=== PATIENT | female | born 1945 | race Caucasian/White ===

== ENCOUNTER 2016-11-18 14:01 | Emergency (ER) | payer MEDICARE, OTHER ==
[~2016-11-18] VITALS: Ht 144.8 cm; Wt 81.6 kg
[~2016-11-18 14:01] MED LIST: ASPI325T8 PO; BUSP10TA PO; FAMO20TA5 PO; FURO20TA3 PO; METO50TA2 PO; POTA20TA12 PO; PRAV40TA2 PO; SERT100T PO; TRAZ150T49 PO
[2016-11-18 14:46] LABS: BILIRUBIN,URINE NEGATIVE (NEG); GLUCOSE,URINE NEGATIVE (NEG); NITRITE,URINE NEGATIVE (NEG); PH,URINE 5.5; PROTEIN,URINE NEGATIVE (NEG-TRACE); UROBILINOGEN,URINE 0.2 mg/dL (0.2 mg/dL)
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
[2016-11-18 14:52] LABS: BACTERIA,URINE FEW /HPF (0-FEW); RBC,URINE 0 /HPF (0-2); SQUAMOUS EPITHELIAL CELL,UR MOD /LPF
[2016-11-18 15:00] VITALS: BP 156/67
[2016-11-18] MEDS ORDERED: NITR100C62 PO (15:04)
== END 2016-11-18 15:07 | disposition home or self-care (01) ==
LOC: ER 14:01
DX: N39.0 Urinary tract infection, site not specified (principal); E78.00 Pure hypercholesterolemia, unspecified; I10 Essential (primary) hypertension; J44.9 Chronic obstructive pulmonary disease, unspecified; K21.9 Gastro-esophageal reflux disease without esophagitis; Z90.49 Acquired absence of other specified parts of digestive tract; Z98.51 Tubal ligation status; Z98.890 Other specified postprocedural states; Z88.8 Allergy status to other drugs, medicaments and biological substances
CPT/HCPCS: 81001; 87086; 99284

== ENCOUNTER → 2017-04-09 | Outpatient (CLI) | payer OTHER ==
[2016-12-08 14:04] VITALS: BP 143/82
[~2017-04-09] MED LIST changes: +CIPR500T94 PO; +DOCU-109 PO; +METR500T8 PO; +NITR100C62 PO; +OXYC5TAB95 PO
--- NOTE | 2017-04-09 15:46 | RAD ---
DATE: 04/09/2017 EXAM: DIGITAL SCREEN BILAT W/CAD HISTORY: Routine screening COMPARISON: 02/08/2015 This study was interpreted with the benefit of Computerized Aided Detection (CAD). The breast parenchyma is primarily fatty replaced. Breast parenchyma level density A. FINDINGS: No new or enlarging breast densities are seen. There are benign type calcifications in both breasts. No suspicious microcalcifications are evident. IMPRESSION: There is no mammographic evidence of malignancy in either breast. BI-RADS CATEGORY: 2 BENIGN FINDING(S) RECOMMENDED FOLLOW-UP: 12M 12 MONTH FOLLOW-UP PQRS compliance statement: Patient information was entered into a reminder system with a target due date for the next mammogram. Mammography is a sensitive method for finding small breast cancers, but it does not detect them all and is not a substitute for careful clinical examination. A negative mammogram does not negate a clinically suspicious finding and should not result in delay in biopsying a clinically suspicious abnormality. "Our facility is accredited by the [employer]."
== END | disposition home or self-care (01) ==
LOC: MAMMO 14:45
PROVIDERS: ATTEND Family Medicine
DX: Z12.31 Encounter for screening mammogram for malignant neoplasm of breast (principal); Z87.891 Personal history of nicotine dependence
CPT/HCPCS: G0202; 77067

== ENCOUNTER → 2018-04-11 | Outpatient (CLI) | payer OTHER ==
[2016-12-08 14:04] VITALS: BP 143/82
[~2018-04-11] MED LIST changes: -METO50TA2 PO; +METO50TA6 PO
--- NOTE | 2018-04-11 12:25 | RAD ---
DATE: 04/11/2018 EXAM: MAMMO GRAY SCREENING BILATERAL HISTORY: Routine screening COMPARISON: 2016 and 2014. This study was interpreted with the benefit of Computerized Aided Detection (CAD). FINDINGS: Breast Density: SCATTERED The breast parenchyma shows scattered fibroglandular densities. Breast parenchyma level B. The skin and nipples are within normal limits. Benign-appearing bilateral calcifications. No suspicious ossifications, spiculated mass or area of architectural distortion. IMPRESSION: No mammographic evidence of malignancy. Stable mammogram. BI-RADS CATEGORY: 2 BENIGN FINDING(S) RECOMMENDED FOLLOW-UP: 12M 12 MONTH FOLLOW-UP PQRS compliance statement: Patient information was entered into a reminder system with a target due date for the next mammogram. Mammography is a sensitive method for finding small breast cancers, but it does not detect them all and is not a substitute for careful clinical examination. A negative mammogram does not negate a clinically suspicious finding and should not result in delay in biopsying a clinically suspicious abnormality. "Our facility is accredited by the [employer]ammography [employer]."
== END | disposition home or self-care (01) ==
LOC: MAMMO 09:23
PROVIDERS: ATTEND Family Medicine
DX: Z12.31 Encounter for screening mammogram for malignant neoplasm of breast (principal)
CPT/HCPCS: 77063; 77067

== ENCOUNTER → 2018-07-20 | Outpatient (CLI) | payer OTHER ==
[2016-12-08 14:04] VITALS: BP 143/82
[~2018-07-20] MED LIST changes: +METR-34 PO; -METR500T8 PO; +OXYC5TAB4 PO; -OXYC5TAB95 PO
--- NOTE | 2018-07-20 11:53 | KCIC ---
Indication:Acute right shoulder pain for one week. No known injury. TECHNIQUE: 3 views of the right shoulder COMPARISON:None FINDINGS: No acute fracture or dislocation. Moderate acromioclavicular and mild glenohumeral joint osteoarthritis. Visualized right lung is clear. IMPRESSION: As above. Electronically signed by: Valeriy Ordonez DO (07/20/2018 11:48 AM) [id number]
== END | disposition home or self-care (01) ==
LOC: KCIC 11:26
PROVIDERS: ATTEND Nurse Practitioner Family
DX: M19.011 Primary osteoarthritis, right shoulder (principal); J44.9 Chronic obstructive pulmonary disease, unspecified; Z87.891 Personal history of nicotine dependence; Z88.8 Allergy status to other drugs, medicaments and biological substances
CPT/HCPCS: 73030

== ENCOUNTER 2018-08-28 14:52 | Inpatient (IN) | payer OTHER ==
[~2018-08-28] VITALS: Ht 146.1 cm; Wt 83.0 kg
[2018-08-28] MEDS ORDERED: IV NORMAL SALINE 1000ML BAG 1,000 ML IV SCH (15:13)
[2018-08-28] MEDS ORDERED: ASPIRIN CHEWABLE 81 MG TABLET. PO ONE (15:15)
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
[2018-08-28 15:28] LABS: BASO % 1 % (0-3); EOS # 0.2 x10^3/uL (0.0-0.7); EOS % 3 % (0-3); HEMATOCRIT 36.6 % (36.0-47.0); LYMPH # 1.7 x10^3/uL (1.0-4.8); LYMPH % 28 % (24-48); MEAN CORPUSCULAR HEMOGLOBIN 31 pg (25-35); MEAN CORPUSCULAR HGB CONC 33 g/dL (31-37); MEAN CORPUSCULAR VOLUME 95 fL (79-100); MONO # 0.4 x10^3/uL (0.0-1.1); MONO % 7 % (0-9); NEUT # 3.9 x10^3uL (1.8-7.7); NEUT % 63 % (31-73); PLATELET COUNT 197 x10^3/uL (140-400); RED BLOOD COUNT 3.86 x10^6/uL (3.50-5.40); WHITE BLOOD COUNT 6.3 x10^3/uL (4.0-11.0)
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
[2018-08-28 15:38] LABS: PROTHROMBIN TIME PATIENT 13.2 SEC (11.7-14.0)
[2018-08-28 15:41] LABS: CALCIUM 8.7 mg/dL (8.5-10.1); GFR 54.1; POTASSIUM 4.9 mmol/L (3.5-5.1)
[2018-08-28 15:55] LABS: ALBUMIN 3.4 g/dL (3.4-5.0); ALBUMIN/GLOBULIN RATIO 0.9 (1.0-1.7); TOTAL BILIRUBIN 0.4 mg/dL (0.2-1.0); TOTAL PROTEIN 7.1 g/dL (6.4-8.2)
[2018-08-28] MEDS ORDERED: ONDANSETRON PF 4 MG/2 ML VIAL. IV PRN (16:15)
[2018-08-28] MEDS ORDERED: oxyCODONE IR 5 MG TABLET PO PRN (16:15)
[2018-08-28] MEDS ORDERED: diphenhydrAMINE HCL 25 MG CAPSULE PO PRN (16:15)
[2018-08-28] MEDS ORDERED: DOCUSATE SODIUM 100 MG CAPSULE. PO PRN (16:15)
[2018-08-28] MEDS ORDERED: ACETAMINOPHEN 500 MG TABLET PO PRN (16:15)
[2018-08-28] MEDS: FAMOTIDINE 20 MG TABLET. PO SCH (17:25)
[2018-08-28 17:37] VITALS: BP_SYST 167; BP_SYST 215; BP_DIAS 82; BP_DIAS 95
--- NOTE | 2018-08-28 18:21 | NUR ---
PATIENT BROUGHT TO ROOM 200 PER WHEELCHAIR BY ED PERSONNEL. PATIENT ORIENTED TO ROOM, CALL LIGHT, AND FALL POLICY. PATIENT HAS NO COMPLAINTS AT THIS TIME. PATIENT ASSESSED AND STABLE AT THIS TIME WITH NO COMPLAINTS OF CHEST PAIN OR PRESSURE. PATIENT ESCORTED TO BATHROOM. PATIENTS GAIT STEADY AT THIS TIME WITH NO CONCERNS. WILL CONTINUE TO MONITOR PATIENT.
[2018-08-28] MEDS: SERTRALINE 50 MG TABLET. PO SCH (18:29)
[2018-08-28 19:00] VITALS: BP 177/52
[2018-08-28] MEDS: busPIRone 10 MG TABLET. PO SCH (21:29)
[2018-08-28] MEDS: traZODone 50 MG TABLET. PO SCH (21:30)
[2018-08-28] MEDS: ATORVASTATIN CALCIUM 10 MG TABLET. PO SCH (21:30)
[2018-08-28] MEDS: METOPROLOL TART IMMED RELEASE 50 MG TABLET. PO SCH (21:30)
[2018-08-28 23:48] VITALS: BP 143/104
[2018-08-29] VITALS (13 sets, daily range): BP systolic 90–151; BP diastolic 39–71
--- NOTE | 2018-08-29 07:05 | EKG ---
[facility] [address] [place] [address] Test Date: 2018-08-28 Test Time: 15:04:15 Pat Name: OMAYRA ESTRADA Department: Room: 200 1 Gender: F Folder Operator: : 1945 Requested By: NOEMY FARMER Order Number: [id number] Reading MD: Sylvester Hamilton MD Measurements Intervals Wisdom Rate: 52 P: [place]: QRS: 62 QRSD: 86 T: 164 QT: 442 QTc: 413 Interpretive Statements SINUS BRADYCARDIA Electronically Signed On 09-01-2018 15:52:28 CDT by Sylvester Hamilton MD
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
[2018-08-29] MEDS: IV NORMAL SALINE 1000ML BAG 1,000 ML IV SCH ×2 (09:55→23:20)
[2018-08-29] MEDS: ASPIRIN 325 MG TABLET PO SCH (09:59)
[2018-08-29] MEDS: METOPROLOL TART IMMED RELEASE 50 MG TABLET. PO SCH ×2 (10:05→21:00)
[2018-08-29] MEDS ORDERED: LIDOCAINE 1% Multi-Dose 20 ML VIAL. ONE (10:14)
[2018-08-29] MEDS ORDERED: IOHEXOL 300 MG/ML 100ML VIAL. ONE ×2 (10:14→11:03)
[2018-08-29] MEDS ORDERED: MIDAZOLAM HCL/PF 2 MG/2 ML VIAL. ONE (10:32)
[2018-08-29] MEDS ORDERED: fentaNYL PF VIAL 100 MCG/2 ML VIAL ONE (10:32)
--- NOTE | 2018-08-29 10:38 | PDOC ---
MODERATE SEDATION ASSESSMENT RISKS/ALTERNATIVES Risks/Alternatives Risks and alternatives of this type of sedation and procedure discussed with: RISK/ALTERNATIVES: Patient H & P ON CHART H & P H & P on chart and reviewed for co-morbid conditions and appropriate labs. H&P ON CHART: Yes STATUS PREG STATUS ASSESSED: N/A MEDS/ALLERGIES REVIEWED Meds/Allergies Reviewed Medications and Allergies including time and route of recently administered narcotics and sedatives. MEDS/ALLERGIES REVIEWED: Yes ASA RATING ASA RATING: II AIRWAY ASSESSMENT Airway Assessment Airway patency, oral function limitations, presence of caps, crowns, dentures, partials, and ability to extend neck assessed. AIRWAY ASSESSMENT: Yes MALLAMPATI SCORE MALLAMPATI SCORE: II PRE-SEDATION ASSESSMENT PRE-SEDATION ASSESSMENT: Yes MIL CARRILLO MD Aug 29, 2018 10:38
[2018-08-29] MEDS ORDERED: NITROGLYCERIN OINT 1 GM PACKET. ONE (10:44)
[2018-08-29] MEDS ORDERED: CONTRAST GIVEN. MC PRN (11:00)
[2018-08-29] MEDS ORDERED: IOHEXOL 300 MG/ML 100ML VIAL. IART ONE (11:00)
[2018-08-29] MEDS ORDERED: MIDAZOLAM HCL/PF 2 MG/2 ML VIAL. IV ONE (11:00)
[2018-08-29] MEDS ORDERED: fentaNYL PF VIAL 100 MCG/2 ML VIAL IV ONE (11:00)
[2018-08-29] MEDS ORDERED: LIDOCAINE 1% Multi-Dose 20 ML VIAL. INJ ONE (11:00)
--- NOTE | 2018-08-29 11:17 | NUR ---
SS following for discharge planning. SS reviewed pt chart and met with pt's RN. Pt is from home and currently requiring oxygen. PT/OT ordered. Pt receiving heart cath today. SS will continue to follow for pending discharge needs.
[2018-08-29 11:24] LABS: CHOLESTEROL/HDL RATIO 2.2
--- NOTE | 2018-08-29 12:20 | CARD ---
MR#: [id number] Date of Study: 08/29/2018 Ordering Physician: LIZZETTE CISSE, Referring Physician: SAMREEN RICHARDSON Tech: Cm Torrez, RT (R) APPROVED REPORT Procedures. Left heart catheterization Left ventriculogram. Selective coronary angiogram Aortic root injection. The patient is a 73-year-old female with recurrent episodes of chest discomfort. Her neck enzymes wer e normal but the patient continued to have chest discomfort with multiple risk factors. Cardiac cath eterization was recommended for definitive diagnosis of possible coronary disease. Risks and benefits were discussed with the patient. She agreed to proceed. After informed consent was obtained the patient was brought to the heart catheterization lab. The are a of the right femoral artery was prepared the usual manner with Betadine, sterile draping and local anesthetic. An 18-gauge needle was used to enter the right femoral artery, a wire placed and a 6 Fren ch sheath placed over the wire. A J-wire was used for all exchanges. A 6 Haitian JL4 diagnostic cathet er was used for injections of the left system. A 6 Haitian Michael right diagnostic catheter was use d for injections of the right system. A pigtail catheter was advanced to the left ventricle. A 30 R AO left ventriculogram was performed. Pullback pressures were measured. A 30 [place] CIT[place] aortic root injecti on was performed. The catheter was removed from the patient. Injection the sheath showed normal place ment. The sheath was removed and sealed with an Angio-Seal product. The patient was moved to the [facility] in stable condition. Findings. Hemodynamics LV 140/24, aortic root 138/64 Coronaries Left main. The left main was a normal-size vessel with no lesions. Left anterior descending. The LAD was a moderate size vessel with normal distribution. It had a mid 2 5% lesion. Left circumflex. The left circumflex vessel was a moderate size vessel with a mid 20% lesion. Right coronary artery. The right coronary artery was a moderate size vessel with an ostial 30-40% les ion. There was no damping with injections. Left ventriculogram. The left ventricle had slight apical hypokinesis. Overall normal ejection fraction at greater than 60 %. Aortic root. The aortic root appeared normal with no aortic insufficiency. <Conclusion> Moderate disease in the right coronary artery. Mild disease in the LAD and left circumflex arteries. Left ventricular ejection fraction of greater than 60%. Elevated LVEDP at 24 mmHg. Signed by : Angel Kline MD Electronically Approved : 08/29/2018 12:20:38
[2018-08-29] MEDS: POTASSIUM CHLORIDE 20 MEQ TABLET.ER. PO SCH (14:36)
[2018-08-29] MEDS: FUROSEMIDE 20 MG TABLET PO SCH (14:36)
[2018-08-29] MEDS: FAMOTIDINE 20 MG TABLET. PO SCH (14:36)
[2018-08-29] MEDS: SERTRALINE 50 MG TABLET. PO SCH (14:36)
[2018-08-29] MEDS: busPIRone 10 MG TABLET. PO SCH ×2 (14:36→22:04)
[2018-08-29] MEDS: NYSTATIN TOPICAL POWDER 15GM BOTTLE. TP SCH ×2 (14:39→22:05)
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
--- NOTE | 2018-08-29 15:00 | NUR ---
Patient's AM medications given late due to patient having heart cath and being NPO. Patient also wanted to wait until she was able to sit up to take pills.
--- NOTE | 2018-08-29 15:00 | NUR ---
Patient ambulated from bed to bathroom and oxygen dropped into 70%, 2L NC placed and patient back up to 94%. Will continue to monitor.
[2018-08-29] MEDS: traZODone 50 MG TABLET. PO SCH (22:04)
[2018-08-29] MEDS: ATORVASTATIN CALCIUM 10 MG TABLET. PO SCH (22:04)
[2018-08-30] VITALS (7 sets, daily range): BP systolic 119–180; BP diastolic 51–66
[2018-08-30] MEDS: ASPIRIN 325 MG TABLET PO SCH (09:04)
[2018-08-30] MEDS: SERTRALINE 50 MG TABLET. PO SCH (09:04)
[2018-08-30] MEDS: FUROSEMIDE 20 MG TABLET PO SCH (09:04)
[2018-08-30] MEDS: FAMOTIDINE 20 MG TABLET. PO SCH (09:04)
[2018-08-30] MEDS: busPIRone 10 MG TABLET. PO SCH ×2 (09:04→20:41)
[2018-08-30] MEDS: POTASSIUM CHLORIDE 20 MEQ TABLET.ER. PO SCH (09:04)
[2018-08-30] MEDS: NYSTATIN TOPICAL POWDER 15GM BOTTLE. TP SCH ×2 (09:05→20:46)
[2018-08-30] MEDS: METOPROLOL TART IMMED RELEASE 25 MG TABLET. PO SCH ×2 (09:05→20:41)
[2018-08-30 09:22] LABS: CALCIUM 8.1 mg/dL (8.5-10.1); GFR 54.1; POTASSIUM 4.5 mmol/L (3.5-5.1)
[2018-08-30] MEDS: IV NORMAL SALINE 1000ML BAG 1,000 ML IV SCH (11:36)
--- NOTE | 2018-08-30 12:38 | CARD ---
MR#: [id number] Date of Study: 08/30/2018 Ordering Physician: LIZZETTE CISSE, Referring Physician: SAMREEN RICHARDSON, Tech: Shonda Castillo APPROVED REPORT EXAM: Two-dimensional and M-mode echocardiogram with Doppler and color Doppler. Other Information Quality : FairHR: 61bpm Technically limited study due to body habitus and COPD INDICATION Chest Pain RISK FACTORS Hypertension Hyperlipidemia Previous smoker 2D DIMENSIONS Left Atrium(2D)3.2 (1.6-4.0cm)IVSd1.1 (0.7-1.1cm) Aortic Root(2D)2.4 (2.0-3.7cm)LVDd4.9 (3.9-5.9cm) LVOT Diameter2.0 (1.8-2.4cm)PWd1.1 (0.7-1.1cm) LVDs4.3 (2.5-4.0cm)FS (%) 11.7 % SV28.8 mlLVEF(%)25.3 (>50%) Aortic Valve AoV Peak Isiah.169.1cm/sAoV VTI33.4cm AO Peak GR.11.4mmHgLVOT Peak Isiah.104.6cm/s LVOT VTI 26.23cmAO Mean GR.6mmHg TEMITOPE (VMAX)1.41jd7BWH (VTI)2.47cm2 Mitral Valve MV E Ikqddpeo847.6cm/sMV DECEL [id number] MV A Erggzxjq84.0cm/sMV VGN84jo E/A Ratio1.6MVA (PHT)5.28cm2 TDI E/Lateral E'11.0E/Medial E'15.2 Pulmonary Valve PV Peak Eydwiyzh262.2cm/sPV Peak Grad.8mmHg Tricuspid Valve TR P. Rqobhitb649pt/sTR Peak Gr.22mmHg Pulmonary Vein S1 Vcjsnbwe28.0cm/sD2 Oxaajops03.5cm/s PVa [id number] LEFT VENTRICLE The left ventricle is normal size. There is borderline concentric left ventricular hypertrophy. The l eft ventricular systolic function is normal and the ejection fraction is within normal range. The Eje ction Fraction is >55%. There is normal LV segmental wall motion. The left ventricular diastolic func tion and filling is normal for age. RIGHT VENTRICLE The right ventricle is normal size. There is normal right ventricular wall thickness. The right ventr icular systolic function is normal. ATRIA The left atrium is borderline dilated. The right atrium size is normal. The interatrial septum is int act with no evidence for an atrial septal defect or patent foramen ovale as noted on 2-D or Doppler i maging. AORTIC VALVE The aortic valve is not well visualized. Doppler and Color Flow revealed no significant aortic regurg itation. There is no significant aortic valvular stenosis. MITRAL VALVE The mitral valve is thickened but opens well. There is no evidence of mitral valve prolapse. There is no mitral valve stenosis. Doppler and Color-flow revealed trace to mild mitral regurgitation. TRICUSPID VALVE The tricuspid valve is not well visualized. Doppler and Color Flow revealed trace tricuspid regurgita tion. There is no tricuspid valve stenosis. PULMONIC VALVE The pulmonic valve is not well visualized. Doppler and Color Flow revealed no pulmonic valvular regur gitation. GREAT VESSELS The aortic root is normal in size. The IVC is dilated and collapses >50% with inspiration. PERICARDIAL EFFUSION There is no evidence of significant pericardial effusion. Critical Notification Critical Value: No <Conclusion> The left ventricular systolic function is normal and the ejection fraction is within normal range. Th e Ejection Fraction is >55%. There is normal LV segmental wall motion. Signed by : Sylvester Hamilton, Electronically Approved : 08/30/2018 12:38:01
[2018-08-30 13:00] LABS: FREE T4 0.51 ng/dL (0.76-1.46); THYROID STIM HORMONE (TSH) 12.883 uIU/mL (0.358-3.74)
--- NOTE | 2018-08-30 14:10 | PDOC ---
CARDIO Progress Notes Date and Time Date of Service 08/30/2018 Time of Evaluation 1350 Subjective Subjective: No Chest Pain, No shortness of breath, No Palpitations Vitals Vitals Vital Signs Date Time Temp Pulse Resp B/P (MAP) Pulse Ox O2 Delivery O2 Flow Rate FiO2 08/30/18 11:00 98.2 51 18 128/51 (76) 99 Nasal Cannula 2.0 98.2 Weight Weight [ ] Input and Output Intake and Output Intake and Output 08/30/18 07:00 Intake Total 820 ml Output Total 1900 ml Balance -1080 ml Intake Oral 820 ml Output Urine Total 1900 ml # Voids 1 Laboratory Labs Laboratory Tests Test 08/30/18 08:20 Sodium Level 143 mmol/L (136-145) Potassium Level 4.5 mmol/L (3.5-5.1) Chloride Level 106 mmol/L (98-107) Carbon Dioxide Level 35 mmol/L (21-32) Anion Gap 2 (6-14) Blood Urea Nitrogen 16 mg/dL (7-20) Creatinine 1.0 mg/dL (0.6-1.0) Estimated GFR (Cockcroft-Gault) 54.1 Glucose Level 101 mg/dL (70-99) Calcium Level 8.1 mg/dL (8.5-10.1) Thyroid Stimulating Hormone (TSH) 12.883 uIU/mL (0.358-3.74) Free Thyroxine 0.51 ng/dL (0.76-1.46) Physical Exam HEENT: Neck Supple W Full Motion Chest: Symmetric LUNGS: Clear to Auscultation Heart: S1S2, RRR (SR) Abdomen: Soft N/T Extremities: No Calf Tenderness Neurology: alert, oriented, follow commands Other Exams right groin arteriotomy site intact, no erythema, swelling, neurovascular status to bilateral LE intact. Assessment Assessment 1. Chest pain: UA features. Bronchospasm/COPD likely contributing to CP and SOA 2. CAD: LHC noted with multivessel mild-mod nonobstructive CAD. EF nml. 2. HTN: controlled 3. HLP 4. COPD 5. Asymptomatic SB: with BB and hypothyroidism contributing. No pauses lowest noted in upper 40s. 6. Primary Hypothyroidism: new. Per PCP Recommendations 1. ASA, lipitor. decrease BB. Continue with lifestyle modification and secondary prvention measures. 2. Pt will need rescue inhalers moving forward, defer to PCP. 3. Follow up in office in 4 weeks. LIZZETTE CISSE ASSOCIATE AUTOMATION ENGINEER Aug 30, 2018 14:10
--- NOTE | 2018-08-30 15:14 | PDOC ---
PROGRESS NOTES Chief Complaint Chief Complaint Chest pain ACS ruled out history of essential hypertension History of dyslipidemia History of COPD without home oxygen therapy Bradycardia secondary to beta jeanette dose adjusted by construction safety consultant Elevated TSH Plan:will recheck thyroid function stests will monitor overnight to ensure improvement of heart rate contineu with supporitve measures Encouraged more activity We will recommend thyroid replacement based on results Reassess in the a.m. History of Present Illness History of Present Illness Patient no acute distress feeling well no complaints during my visit Vitals Vitals Vital Signs Date Time Temp Pulse Resp B/P (MAP) Pulse Ox O2 Delivery O2 Flow Rate FiO2 08/30/18 11:00 98.2 51 18 128/51 (76) 99 Nasal Cannula 2.0 98.2 Physical Exam General: Alert, Oriented X3, Cooperative, No acute distress Heart: Regular rate (SR/SB), Other (distant heart sounds) Lungs: Clear Abdomen: Soft, No tenderness Extremities: No cyanosis, Other (1+ bilateral LE pitting edema) Skin: No breakdown, No significant lesion Labs LABS Laboratory Tests Test 08/30/18 08:20 Sodium Level 143 mmol/L (136-145) Potassium Level 4.5 mmol/L (3.5-5.1) Chloride Level 106 mmol/L (98-107) Carbon Dioxide Level 35 mmol/L (21-32) Anion Gap 2 (6-14) Blood Urea Nitrogen 16 mg/dL (7-20) Creatinine 1.0 mg/dL (0.6-1.0) Estimated GFR (Cockcroft-Gault) 54.1 Glucose Level 101 mg/dL (70-99) Calcium Level 8.1 mg/dL (8.5-10.1) Thyroid Stimulating Hormone (TSH) 12.883 uIU/mL (0.358-3.74) Free Thyroxine 0.51 ng/dL (0.76-1.46) Assessment and Plan Assessmemt and Plan Problems Medical Problems: (1) Chest pain Status: Acute Comment Review of Relevant I have reviewed the following items paramjit (where applicable) has been applied. Labs Laboratory Tests Test 08/28/18 15:20 08/28/18 19:44 08/28/18 22:35 08/29/18 10:55 White Blood Count 6.3 x10^3/uL (4.0-11.0) Red Blood Count 3.86 x10^6/uL (3.50-5.40) Hemoglobin 12.0 g/dL (12.0-15.5) Hematocrit 36.6 % (36.0-47.0) Mean Corpuscular Volume 95 fL (79-100) Mean Corpuscular Hemoglobin 31 pg (25-35) Mean Corpuscular Hemoglobin Concent 33 g/dL (31-37) Red Cell Distribution Width 14.0 % (11.5-14.5) Platelet Count 197 x10^3/uL (140-400) Neutrophils (%) (Auto) 63 % (31-73) Lymphocytes (%) (Auto) 28 % (24-48) Monocytes (%) (Auto) 7 % (0-9) Eosinophils (%) (Auto) 3 % (0-3) Basophils (%) (Auto) 1 % (0-3) Neutrophils # (Auto) 3.9 x10^3uL (1.8-7.7) Lymphocytes # (Auto) 1.7 x10^3/uL (1.0-4.8) Monocytes # (Auto) 0.4 x10^3/uL (0.0-1.1) Eosinophils # (Auto) 0.2 x10^3/uL (0.0-0.7) Basophils # (Auto) 0.0 x10^3/uL (0.0-0.2) Prothrombin Time 13.2 SEC (11.7-14.0) Prothromb Time International Ratio 1.0 (0.8-1.1) Sodium Level 141 mmol/L (136-145) Potassium Level 4.9 mmol/L (3.5-5.1) Chloride Level 106 mmol/L (98-107) Carbon Dioxide Level 26 mmol/L (21-32) Anion Gap 9 (6-14) Blood Urea Nitrogen 17 mg/dL (7-20) Creatinine 1.0 mg/dL (0.6-1.0) Estimated GFR (Cockcroft-Gault) 54.1 BUN/Creatinine Ratio 17 (6-20) Glucose Level 95 mg/dL (70-99) Calcium Level 8.7 mg/dL (8.5-10.1) Total Bilirubin 0.4 mg/dL (0.2-1.0) Aspartate Amino Transf (AST/SGOT) 23 U/L (15-37) Alanine Aminotransferase (ALT/SGPT) 36 U/L (14-59) Alkaline Phosphatase 92 U/L (46-116) Troponin I Quantitative < 0.017 ng/mL (0.000-0.055) < 0.017 ng/mL (0.000-0.055) < 0.017 ng/mL (0.000-0.055) RC-Iwt-U-Type Natriuretic Peptide 1083 pg/mL (0-449) Total Protein 7.1 g/dL (6.4-8.2) Albumin 3.4 g/dL (3.4-5.0) Albumin/Globulin Ratio 0.9 (1.0-1.7) Triglycerides Level 82 mg/dL (0-150) Cholesterol Level 139 mg/dL (0-200) LDL Cholesterol, Calculated 60 mg/dL (0-100) VLDL Cholesterol, Calculated 16 mg/dL (0-40) Non-HDL Cholesterol Calculated 76 mg/dL (0-129) HDL Cholesterol 63 mg/dL (40-60) Cholesterol/HDL Ratio 2.2 Thyroid Stimulating Hormone (TSH) 15.543 uIU/mL (0.358-3.74) Test 08/30/18 08:20 Sodium Level 143 mmol/L (136-145) Potassium Level 4.5 mmol/L (3.5-5.1) Chloride Level 106 mmol/L (98-107) Carbon Dioxide Level 35 mmol/L (21-32) Anion Gap 2 (6-14) Blood Urea Nitrogen 16 mg/dL (7-20) Creatinine 1.0 mg/dL (0.6-1.0) Estimated GFR (Cockcroft-Gault) 54.1 Glucose Level 101 mg/dL (70-99) Calcium Level 8.1 mg/dL (8.5-10.1) Thyroid Stimulating Hormone (TSH) 12.883 uIU/mL (0.358-3.74) Free Thyroxine 0.51 ng/dL (0.76-1.46) Laboratory Tests Test 08/30/18 08:20 Sodium Level 143 mmol/L (136-145) Potassium Level 4.5 mmol/L (3.5-5.1) Chloride Level 106 mmol/L (98-107) Carbon Dioxide Level 35 mmol/L (21-32) Anion Gap 2 (6-14) Blood Urea Nitrogen 16 mg/dL (7-20) Creatinine 1.0 mg/dL (0.6-1.0) Estimated GFR (Cockcroft-Gault) 54.1 Glucose Level 101 mg/dL (70-99) Calcium Level 8.1 mg/dL (8.5-10.1) Thyroid Stimulating Hormone (TSH) 12.883 uIU/mL (0.358-3.74) Free Thyroxine 0.51 ng/dL (0.76-1.46) Medications Current Medications Aspirin (Children'S Aspirin) 324 mg 1X ONCE PO ; Start 08/28/18 at 15:15; Stop 08/28/18 at 15:16; Status DC Sodium Chloride 1,000 ml @ 100 mls/hr Q10H IV Last administered on 08/28/18at 15:13; Start 08/28/18 at 15:13; Stop 08/29/18 at 01:12; Status DC Acetaminophen (Tylenol) 500 mg PRN Q6HRS PRN PO MILD PAIN / TEMP Last administered on 08/29/18at 12:24; Start 08/28/18 at 16:15 Ondansetron HCl (Zofran) 4 mg PRN Q6HRS PRN IV NAUSEA/VOMITING Last administered on 08/28/18at 21:30; Start 08/28/18 at 16:15 Diphenhydramine HCl (Benadryl) 25 mg PRN QHS PRN PO INSOMNIA; Start 08/28/18 at 16:15 Aspirin (Vinnie Aspirin) 325 mg DAILY PO Last administered on 08/30/18 09:04; Start 08/29/18 at 09:00 Buspirone HCl (Buspar) 10 mg BID PO Last administered on 08/30/18 09:04; Start 08/28/18 at 21:00 Docusate Sodium (Colace) 100 mg PRN BID PRN PO CONSTIPATION; Start 08/28/18 at 16:15 Famotidine (Pepcid) 20 mg DAILY PO Last administered on 08/30/18 09:04; Start 08/28/18 at 17:00 Furosemide (Lasix) 20 mg DAILY PO Last administered on 08/30/18at 09:04; Start 08/29/18 at 09:00 Metoprolol Tartrate (Lopressor) 50 mg BID PO Last administered on 08/29/18at 10: 05; Start 08/28/18 at 21:00; Stop 08/30/18 at 07:43; Status DC Oxycodone HCl (Roxicodone) 5 mg PRN Q3HRS PRN PO MOD-SEVERE PAIN; Start at 16:15 Potassium Chloride (Klor-Con) 20 meq DAILY PO Last administered on 08/30/18 09 :04; Start 08/29/18 at 09:00 Atorvastatin Calcium (Lipitor) 10 mg QHS PO Last administered on 08/29/18 22: 04; Start 08/28/18 at 21:00 Sertraline HCl (Zoloft) 150 mg DAILY PO Last administered on 08/30/18 09:04; Start 08/28/18 at 17:00 Trazodone HCl (Desyrel) 150 mg QHS PO Last administered on 08/29/18at 22:04; Start 08/28/18 at 21:00 Sodium Chloride 1,000 ml @ 75 mls/hr [id number] IV Last administered on at 09:55; Start 08/29/18 at 10:00 Iohexol (Omnipaque 300 Mg/ml) 100 ml STK-MED ONCE .ROUTE ; Start 08/29/18 at 10: 14; Stop 08/29/18 at 10:15; Status DC Lidocaine HCl (Lidocaine 1% 20ml Vial) 20 ml STK-MED ONCE .ROUTE ; Start at 10:14; Stop 08/29/18 at 10:15; Status DC Heparin Sodium/ Sodium Chloride 1,000 ml @ As Directed STK-MED ONCE .ROUTE ; Start 08/29/18 at 10:14; Stop 08/29/18 at 10:15; Status DC Fentanyl Citrate (Fentanyl 2ml Vial) 100 mcg STK-MED ONCE .ROUTE ; Start at 10:32; Stop 08/29/18 at 10:33; Status DC Midazolam HCl (Versed) 2 mg STK-MED ONCE .ROUTE ; Start 08/29/18 at 10:32; Stop 08/29/18 at 10:33; Status DC Nitroglycerin (Nitro-Bid Oint) 1 inch STK-MED ONCE .ROUTE ; Start 08/29/18 at 10 :44; Stop 08/29/18 at 10:45; Status DC Heparin Sodium/ Sodium Chloride (HEPARIN for ARTERIAL LINE FLUSH) 1,000 unit 1X ONCE IART Last administered on 08/29/18at 11:18; Start 08/29/18 at 11:00; Stop 08/29/18 at 11:01; Status DC Heparin Sodium/ Sodium Chloride (HEPARIN for ARTERIAL LINE FLUSH) 1,000 unit 1X ONCE IART Last administered on 08/29/18at 11:18; Start 08/29/18 at 11:00; Stop 08/29/18 at 11:01; Status DC Midazolam HCl (Versed) 2 mg 1X ONCE IV Last administered on 08/29/18 11:18; Start 08/29/18 at 11:00; Stop 08/29/18 at 11:01; Status DC Fentanyl Citrate (Fentanyl 2ml Vial) 100 mcg 1X ONCE IV Last administered on 11:; Start 08/29/18 at 11:00; Stop 08/29/18 at 11:01; Status DC Iohexol (Omnipaque 300 Mg/ml) 100 ml 1X ONCE IART Last administered on 11:19; Start 08/29/18 at 11:00; Stop 08/29/18 at 11:01; Status DC Lidocaine HCl (Lidocaine 1% 20ml Vial) 20 ml 1X ONCE INJ Last administered on 08/29/18 11:; Start 08/29/18 at 11:00; Stop 08/29/18 at 11:01; Status DC Info (CONTRAST GIVEN -- Rx MONITORING) 1 each PRN DAILY PRN MC SEE COMMENTS; Start 08/29/18 at 11:00; Stop 08/31/18 at 10:59 Iohexol (Omnipaque 300 Mg/ml) 100 ml STK-MED ONCE .ROUTE ; Start 08/29/18 at 11: 03; Stop 08/29/18 at 11:04; Status DC Nystatin (Nystop) 1 jignesh BID TP Last administered on 08/30/18at 09:05; Start at 14:00 Metoprolol Tartrate (Lopressor) 25 mg BID PO Last administered on 08/30/18at 09: 05; Start 08/30/18 at 09:00 Active Scripts Active Oxycodone Hcl Immed.release (Oxycodone Hcl) 5 Mg Tablet 5 Mg PO PRN Q3HRS PRN Colace (Docusate Sodium) 100 Mg Capsule 100 Mg PO PRN BID PRN Reported Aspirin 325 Mg Tablet 1 Tab PO DAILY Zoloft (Sertraline Hcl) 100 Mg Tablet 1.5 Tab PO DAILY Furosemide 20 Mg Tablet 1 Tab PO DAILY Pravastatin Sodium 40 Mg Tablet 1 Tab PO QHS Trazodone Hcl 150 Mg Tablet 1 Tab PO QHS Potassium Chloride 20 Meq Tab.er.prt 1 Tab PO DAILY Famotidine 20 Mg Tablet 1 Tab PO DAILY Metoprolol Tartrate 50 Mg Tablet 1 Tab PO BID Buspirone Hcl 10 Mg Tablet 1 Tab PO BID Vitals/I & O Vital Sign - Last 24 Hours 08/29/18 08/29/18 08/29/18 08/29/18 19:00 20:00 21:00 23:00 Temp 98.7 98.5 98.7 98.5 Pulse 56 55 59 Resp 18 20 B/P (MAP) 113/39 (63) 126/53 (77) Pulse Ox 98 98 O2 Delivery Nasal Cannula Nasal Cannula Room Air O2 Flow Rate 2.0 2.0 2.0 08/30/18 08/30/18 08/30/18 08/30/18 03:00 07:00 08:08 09:05 Temp 98.6 98.4 98.6 98.4 Pulse 65 66 64 Resp 16 17 B/P (MAP) 134/62 (86) 145/57 (86) 145/57 Pulse Ox 96 97 O2 Delivery Nasal Cannula Nasal Cannula Nasal Cannula O2 Flow Rate 2.0 2.0 2.0 08/30/18 11:00 Temp 98.2 98.2 Pulse 51 Resp 18 B/P (MAP) 128/51 (76) Pulse Ox 99 O2 Delivery Nasal Cannula O2 Flow Rate 2.0 Intake and Output 08/29/18 08/29/18 08/30/18 14:59 22:59 06:59 Intake Total 0 ml 700 ml 120 ml Output Total 700 ml 800 ml 400 ml Balance -700 ml -100 ml -280 ml RASHAUN SALDANA MD Aug 30, 2018 15:14
[2018-08-30] MEDS: ATORVASTATIN CALCIUM 10 MG TABLET. PO SCH (20:40)
[2018-08-30] MEDS: traZODone 50 MG TABLET. PO SCH (20:41)
[2018-08-31] MEDS: IV NORMAL SALINE 1000ML BAG 1,000 ML IV SCH (02:00)
[2018-08-31 03:00] VITALS: BP_SYST 143; BP_SYST 188; BP_DIAS 58; BP_DIAS 81
[2018-08-31 07:25] VITALS: BP 137/57
[2018-08-31] MEDS: NYSTATIN TOPICAL POWDER 15GM BOTTLE. TP SCH (09:14)
[2018-08-31] MEDS: busPIRone 10 MG TABLET. PO SCH (09:14)
[2018-08-31] MEDS: METOPROLOL TART IMMED RELEASE 25 MG TABLET. PO SCH (09:15)
[2018-08-31] MEDS: ASPIRIN 325 MG TABLET PO SCH (09:15)
[2018-08-31] MEDS: POTASSIUM CHLORIDE 20 MEQ TABLET.ER. PO SCH (09:15)
[2018-08-31] MEDS: SERTRALINE 50 MG TABLET. PO SCH (09:15)
[2018-08-31] MEDS: FAMOTIDINE 20 MG TABLET. PO SCH (09:15)
[2018-08-31] MEDS: FUROSEMIDE 20 MG TABLET PO SCH (09:15)
[2018-08-31] MEDS ORDERED: LEVOTHYROXINE 75 MCG TABLET PO SCH (10:00)
--- NOTE | 2018-08-31 10:30 | NUR ---
SS following up with discharge planning. Six minute walk completed and pt will need script for oxygen. Physician notified. SS awaiting script for oxygen and discharge orders and will proceed accordingly with discharge planning.
[2018-08-31 11:16] VITALS: BP 164/70
[2018-08-31] MEDS ORDERED: LEVO75TA PO (12:56)
--- NOTE | 2018-08-31 13:09 | PDOC3 ---
Discharge Summary Visit Information Date of Admission: Aug 29, 2018 Date of Discharge: Aug 31, 2018 Admitting Diagnosis: Chest pain ACS ruled out Final Diagnosis Pain with ACS ruled out Essential hypertension rarely controlled History of dyslipidemia History of COPD without need for home oxygen therapy Hypothyroidism newly diagnosed acquired Brief Hospital Course Allergies Allergies Coded Allergies Type Severity Reaction Last Updated Verified lisinopril Allergy Intermediate 12/06/16 Yes Vital Signs Vital Signs Date Time Temp Pulse Resp B/P (MAP) Pulse Ox O2 Delivery O2 Flow Rate FiO2 08/31/18 11:16 97.8 58 17 164/70 (101) 97 Nasal Cannula 1.0 97.8 Lab Results Laboratory Tests Test 08/30/18 08:20 Sodium Level 143 mmol/L (136-145) Potassium Level 4.5 mmol/L (3.5-5.1) Chloride Level 106 mmol/L (98-107) Carbon Dioxide Level 35 mmol/L (21-32) Anion Gap 2 (6-14) Blood Urea Nitrogen 16 mg/dL (7-20) Creatinine 1.0 mg/dL (0.6-1.0) Estimated GFR (Cockcroft-Gault) 54.1 Glucose Level 101 mg/dL (70-99) Calcium Level 8.1 mg/dL (8.5-10.1) Thyroid Stimulating Hormone (TSH) 12.883 uIU/mL (0.358-3.74) Free Thyroxine 0.51 ng/dL (0.76-1.46) Total Triiodothyronine 69 ng/dL (71-180) Brief Hospital Course Ms. Scott is a 73 old who presented with exertional dyspnea and she was admitted for chest discomfort that she did not describe in the typical manner. Patient was evaluated by cardiology with a echocardiogram. And the results of her echocardiogram are as follows EXAM: Two-dimensional and M-mode echocardiogram with Doppler and color Doppler. Other Information Quality : Fair HR: 61bpm Technically limited study due to body habitus and COPD INDICATION Chest Pain RISK FACTORS Hypertension Hyperlipidemia Previous smoker 2D DIMENSIONS Left Atrium(2D) 3.2 (1.6-4.0cm) IVSd 1.1 (0.7-1.1cm) Aortic Root(2D) 2.4 (2.0-3.7cm) LVDd 4.9 (3.9-5.9cm) LVOT Diameter 2.0 (1.8-2.4cm) PWd 1.1 (0.7-1.1cm) LVDs 4.3 (2.5-4.0cm) FS (%) 11.7 % SV 28.8 ml LVEF(%) 25.3 (>50%) Aortic Valve AoV Peak Isiah. 169.1cm/s AoV VTI 33.4cm AO Peak GR. 11.4mmHg LVOT Peak Isiah. 104.6cm/s LVOT VTI 26.23cm AO Mean GR. 6mmHg TEMITOPE (VMAX) 1.48cm2 TEMITOPE (VTI) 2.47cm2 Mitral Valve MV E Velocity 105.6cm/s MV DECEL TIME 144ms MV A Velocity 65.0cm/s MV PHT 42ms E/A Ratio 1.6 MVA (PHT) 5.28cm2 TDI E/Lateral E' 11.0 E/Medial E' 15.2 Pulmonary Valve PV Peak Velocity 144.2cm/s PV Peak Grad. 8mmHg Tricuspid Valve TR P. Velocity 237cm/s TR Peak Gr. 22mmHg Pulmonary Vein S1 Velocity 46.0cm/s D2 Velocity 49.5cm/s PVa duration 119msec LEFT VENTRICLE The left ventricle is normal size. There is borderline concentric left ventricular hypertrophy. The left ventricular systolic function is normal and the ejection fraction is within normal range. The Ejection Fraction is >55%. There is normal LV segmental wall motion. The left ventricular diastolic function and filling is normal for age. RIGHT VENTRICLE The right ventricle is normal size. There is normal right ventricular wall thickness. The right ventricular systolic function is normal. ATRIA The left atrium is borderline dilated. The right atrium size is normal. The interatrial septum is intact with no evidence for an atrial septal defect or patent foramen ovale as noted on 2-D or Doppler imaging. AORTIC VALVE The aortic valve is not well visualized. Doppler and Color Flow revealed no significant aortic regurgitation. There is no significant aortic valvular stenosis. MITRAL VALVE The mitral valve is thickened but opens well. There is no evidence of mitral valve prolapse. There is no mitral valve stenosis. Doppler and Color-flow revealed trace to mild mitral regurgitation. TRICUSPID VALVE The tricuspid valve is not well visualized. Doppler and Color Flow revealed trace tricuspid regurgitation. There is no tricuspid valve stenosis. PULMONIC VALVE The pulmonic valve is not well visualized. Doppler and Color Flow revealed no pulmonic valvular regurgitation. GREAT VESSELS The aortic root is normal in size. The IVC is dilated and collapses >50% with inspiration. PERICARDIAL EFFUSION There is no evidence of significant pericardial effusion. Critical Notification Critical Value: No <Conclusion> The left ventricular systolic function is normal and the ejection fraction is within normal range. The Ejection Fraction is >55%. There is normal LV segmental wall motion. Signed by : Sylvester Hamilton, Electronically Approved : 08/30/2018 12:38:01 Her symptoms of dyspnea most likely related to her underlying COPD. 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 She was used also complaining of feeling weak and she was diagnosed with hypothyroidism which could certainly explain her symptoms. The patient was evaluated with a 6 minute walk test and she will require home oxygen therapy for which a prescription has been provided. 2 L during exercise and 1 L at rest. She was started on levothyroxine 75 g and prescription was provided for her CONCERNS were addressed the best of my abilities Gen.: overweight in no apparent distress Head: Normal shape atraumatic Eyes: Pupils equal reactive to light and accommodation, normal conjunctivae and lids Ears: Normal shape Nose: Normal shape no trauma Mouth: No exudates of the back of throat no thrush no lesions Neck: Supple no JVD no carotid bruit or lymphadenopathy no thyromegaly Chest: Lungs clear to auscultation with good inspiratory effort no crackles rales or rhonchi Cardiovascular: S1-S2 regular rhythm no murmurs gallops or rubs Abdomen: Bowel sounds present soft nontender no hepatosplenomegaly appreciated sign Extremities: No clubbing no cyanosis no edema peripheral pulses palpated bilaterally Neurological: Alert awake oriented in person time place and situation, cranial nerves II through XII intact, no motor or sensory deficits appreciated Psych: Appropriate mood, cooperative Discharge Information Condition at Discharge: Improved Follow Up: Weeks Disposition/Orders: D/C to Home Scheduled Aspirin (Aspirin) 325 Mg Tablet, 1 TAB PO DAILY, #30 Ref 5 (Reported) Entered as Reported by: ALEXANDRU PRAKASH on 06/06/15 1238 Last Action: Continued on 08/28/18 1609 by SAMREEN RICHARDSON Buspirone Hcl (Buspirone Hcl) 10 Mg Tablet, 1 TAB PO BID, #60 Ref 1 (Reported) Entered as Reported by: ALEXANDRU PRAKASH on 06/06/151237 Last Action: Continued on 08/28/18 160 by SAMREEN RICHARDSON Famotidine (Famotidine) 20 Mg Tablet, 1 TAB PO DAILY, #60 Ref 5 (Reported) Entered as Reported by: ALEXANDRU PRAKASH on 06/06/151237 Last Action: Continued on 08/28/18 160 by SAMREEN RICHARDSON Furosemide (Furosemide) 20 Mg Tablet, 1 TAB PO DAILY, #90 Ref 1 (Reported) Entered as Reported by: ALEXANDRU PRAKASH on 06/06/151237 Last Action: Continued on 08/28/18 160 by SAMREEN RICHARDSON Levothyroxine Sodium (Synthroid) 75 Mcg Tablet, 75 MCG PO DAILY06 for hypothyroidism for 30 Days, #30 Ref 3 Prescribed by: RASHAUN SALDANA MD on 08/31/18 1256 Metoprolol Tartrate (Metoprolol Tartrate) 50 Mg Tablet, 1 TAB PO BID, #60 Ref 5 (Reported) Entered as Reported by: ALEXANDRU PRAKASH on 06/06/151237 Last Action: Continued on 08/28/18 160 by SAMREEN RICHARDSON Potassium Chloride (Potassium Chloride) 20 Meq Tab.er.prt, 1 TAB PO DAILY, #180 Ref 3 (Reported) Entered as Reported by: ALEXANDRU PRAKASH on 06/06/151237 Last Action: Continued on 08/28/18 160 by SAMREEN RICHARDSON Pravastatin Sodium (Pravastatin Sodium) 40 Mg Tablet, 1 TAB PO QHS, #90 Ref 1 ( Reported) Entered as Reported by: ALEXANDRU PRAKASH on 06/06/151237 Last Action: Converted on 08/28/18 160 by SAMREEN RICHARDSON Sertraline Hcl (Zoloft) 100 Mg Tablet, 1.5 TAB PO DAILY, #30 Ref 5 (Reported) Entered as Reported by: ALEXANDRU PRAKASH on 06/06/151237 Last Action: Converted on 08/28/18 160 by SAMREEN RICHARDSON Trazodone Hcl (Trazodone Hcl) 150 Mg Tablet, 1 TAB PO QHS, #30 Ref 1 (Reported) Entered as Reported by: ALEXANDRU PRAKASH on 12/24/15 1238 Last Action: Converted on 08/28/18 160 by SAMREEN RICHARDSON Scheduled PRN Docusate Sodium (Colace) 100 Mg Capsule, 100 MG PO PRN BID PRN for CONSTIPATION , #10 Prescribed by: ELIS MCCABE MD on 12/08/16 105 Last Action: Continued on 08/28/181608 by SAMREEN RICHARDSON Oxycodone Hcl (Oxycodone Hcl Immed.release ) 5 Mg Tablet, 5 MG PO PRN Q3HRS PRN for BREAKTHROUGH PAIN, #10 Prescribed by: ELIS MCCABE MD on 12/08/16 105 Last Action: Continued on 08/28/181608 by RASHAUN JAIN MD Aug 31, 2018 13:09
--- NOTE | 2018-08-31 14:44 | NUR ---
FERNANDO following pt. Orders for 02 faxed to [employer] and approved. SW provided pt with a tank to take home and [employer] contact info to call so they can provide her with concentrator/equipment. Pt verbalized understanding. Pt stated she has transportation to take her home.
--- NOTE | 2018-08-31 15:20 | NUR ---
Discharge Note: OMAYRA ESTRADA Discharge instructions and discharge home medications reviewed with Patient and Brother and a copy given. All questions have been answered and understanding verbalized. The following instructions and handouts were given: CP, oxygen use at home, synthroid Discontinued lines and drains: Peripheral IV intact. Patient discharged to Home or Self Care with Family Member via Wheelchair
== END 2018-08-31 15:22 | disposition home or self-care (01) | DRG 286 ==
LOC: ER 14:52 → OBSVTOIN 16:30 → INTOOBSV 16:30 → 2 NORTH 16:30 → OBSVTOIN 08-30 15:43 → 2 NORTH 08-30 15:45
PROVIDERS: ADMIT Internal Medicine; ATTEND Internal Medicine
PROC: 4A023N7 Measurement of Cardiac Sampling and Pressure, Left Heart, Percutaneous Approach (ICD-10-PCS; principal; 2018-08-29)
PROC: B2111ZZ Fluoroscopy of Multiple Coronary Arteries using Low Osmolar Contrast (ICD-10-PCS; 2018-08-29)
PROC: B2151ZZ Fluoroscopy of Left Heart using Low Osmolar Contrast (ICD-10-PCS; 2018-08-29)
PROC: B3101ZZ Fluoroscopy of Thoracic Aorta using Low Osmolar Contrast (ICD-10-PCS; 2018-08-29)
DX: I25.10 Atherosclerotic heart disease of native coronary artery without angina pectoris (principal); I50.43 Acute on chronic combined systolic (congestive) and diastolic (congestive) heart failure; R07.89 Other chest pain; J44.9 Chronic obstructive pulmonary disease, unspecified; F41.9 Anxiety disorder, unspecified; F32.9 Major depressive disorder, single episode, unspecified; M19.90 Unspecified osteoarthritis, unspecified site; K21.9 Gastro-esophageal reflux disease without esophagitis; E78.00 Pure hypercholesterolemia, unspecified; K57.90 Diverticulosis of intestine, part unspecified, without perforation or abscess without bleeding; E78.5 Hyperlipidemia, unspecified; R00.1 Bradycardia, unspecified; E03.9 Hypothyroidism, unspecified; T44.7X5A Adverse effect of beta-adrenoreceptor antagonists, initial encounter; Y92.89 Other specified places as the place of occurrence of the external cause; Z90.49 Acquired absence of other specified parts of digestive tract; Z98.51 Tubal ligation status; Z88.8 Allergy status to other drugs, medicaments and biological substances; Z86.010 Personal history of colon polyps; Z82.49 Family history of ischemic heart disease and other diseases of the circulatory system; Z87.891 Personal history of nicotine dependence; E66.3 Overweight; Z68.38 Body mass index [BMI] 38.0-38.9, adult; I11.0 Hypertensive heart disease with heart failure
CPT/HCPCS: 36415; 71045; 80048; 80053; 80061; 83880; 84439; 84443; 84480; 84484; 85025; 85610; 93005; 93306; 93458; 93567; 94618; 96360; 96361; 99152; 99153; C1760; C1769; C1892; G0269; G0378; G0379; J1644; J2250; J2405; J3010; J7030; Q9967; 97110; 97116; 99285-25; C1771

== ENCOUNTER → 2018-09-13 | Outpatient (CLI) | payer OTHER ==
[2018-08-31 11:16] VITALS: BP 164/70
[~2018-09-13] MED LIST changes: +HYDR-3164 PO; +LEVO75TA PO
--- NOTE | 2018-09-13 16:35 | KCIC ---
EXAM: Chest, 2 views. HISTORY: Emphysema. COMPARISON: 06/06/2015 FINDINGS: 2 views the chest are obtained. There is scattered diffuse increased interstitial opacity. There is no consolidation, pleural effusion or pneumothorax. There is a calcified granuloma within the right lower lobe. There is suspected right middle lobe pleural parenchymal scarring. There are surgical clips overlying the medial left upper lobe. There are metallic foreign bodies overlying the left axilla due to prior penetrating injury. IMPRESSION: 1. Scattered areas of increased interstitial opacity likely due to chronic interstitial changes or multifocal interstitial infiltrate. 2. Stable prominent cardiac silhouette and suspected right middle lobe pleural parenchymal scarring. Electronically signed by: Mary Cornejo MD (09/13/2018 4:32 PM) [email or web address]
== END | disposition home or self-care (01) ==
LOC: KCIC 10:05
PROVIDERS: ATTEND Nurse Practitioner Family
DX: J43.2 Centrilobular emphysema (principal); J98.4 Other disorders of lung; T81.508A Unspecified complication of foreign body accidentally left in body following other procedure, initial encounter
CPT/HCPCS: 71046

== ENCOUNTER 2018-09-17 14:50 | Emergency (ER) | payer OTHER ==
[~2018-09-17] VITALS: Ht 144.8 cm; Wt 83.0 kg
[~2018-09-17 14:50] MED LIST changes: -HYDR-3164 PO
[2018-09-17 15:23] LABS: BILIRUBIN,URINE NEGATIVE (NEG); COLOR,URINE YELLOW; NITRITE,URINE NEGATIVE (NEG); PROTEIN,URINE NEGATIVE (NEG-TRACE)
[2018-09-17 15:28] LABS: CLARITY,URINE CLEAR
[2018-09-17] MEDS ORDERED: CYCLOBENZAPRINE 10 MG TABLET. PO ONE (15:30)
[2018-09-17] MEDS ORDERED: fentaNYL PF VIAL 100 MCG/2 ML VIAL IV ONE (15:30)
[2018-09-17] MEDS ORDERED: IV NORMAL SALINE 500ML BAG 500 ML IV ONE (15:30)
[2018-09-17 15:31] LABS: BACTERIA,URINE FEW /HPF (0-FEW); HYALINE CASTS, URINE FEW /HPF; RBC,URINE OCC /HPF (0-2); SQUAMOUS EPITHELIAL CELL,UR MANY /LPF
[2018-09-17 15:53] LABS: BASO # 0.1 x10^3/uL (0.0-0.2); BASO % 1 % (0-3); EOS # 0.1 x10^3/uL (0.0-0.7); EOS % 2 % (0-3); HEMATOCRIT 33.7 % (36.0-47.0); HEMOGLOBIN 11.1 g/dL (12.0-15.5); LYMPH # 1.7 x10^3/uL (1.0-4.8); LYMPH % 28 % (24-48); MEAN CORPUSCULAR HEMOGLOBIN 31 pg (25-35); MEAN CORPUSCULAR HGB CONC 33 g/dL (31-37); MEAN CORPUSCULAR VOLUME 94 fL (79-100); MONO # 0.5 x10^3/uL (0.0-1.1); MONO % 8 % (0-9); NEUT # 3.6 x10^3uL (1.8-7.7); NEUT % 61 % (31-73); PLATELET COUNT 196 x10^3/uL (140-400); RED CELL DISTRIBUTION WIDTH 13.5 % (11.5-14.5); WHITE BLOOD COUNT 5.9 x10^3/uL (4.0-11.0)
[2018-09-17 16:12] LABS: CALCIUM 8.8 mg/dL (8.5-10.1); CREATININE 1.2 mg/dL (0.6-1.0); GFR 43.8; POTASSIUM 4.5 mmol/L (3.5-5.1)
[2018-09-17 16:18] LABS: ALBUMIN 3.5 g/dL (3.4-5.0); TOTAL BILIRUBIN 0.3 mg/dL (0.2-1.0); TOTAL PROTEIN 6.9 g/dL (6.4-8.2)
--- NOTE | 2018-09-17 16:32 | RAD ---
CT study of the abdomen and pelvis without contrast Clinical indications: Left flank pain for one week. TECHNIQUE: Noncontrast helical CT scanning of the abdomen and pelvis was performed. Without contrast, the sensitivity to detect organ pathology and GI tract pathology is decreased. PQRS compliance Statement One or more of the following individualized dose reduction techniques were utilized for this study: 1. Automated exposure control 2. Adjustment of the mA and/or kV according to patient size 3. Use of iterative reconstruction technique COMPARISON: December 03, 2016. FINDINGS: The liver and spleen and pancreas are homogeneous in appearance on this noncontrast study. The gallbladder is surgically absent. No extra hepatic biliary ductal dilatation is seen. No adrenal mass is evident. No hydronephrosis or hydroureter or urinary tract stone is evident. No adrenal mass is seen on either side on this noncontrast study. No focal aneurysmal dilatation of the abdominal aorta is seen. No enlarged abdominal or pelvic lymphadenopathy is evident. No uterine mass is evident. No dominant ovarian cyst or mass is seen. Sigmoid diverticulosis is seen without diverticulitis. Terminal ileum is unremarkable. There are no CT findings of appendicitis. No bowel obstruction is seen. No free fluid or free air or mesenteric edema is seen. No lung base consolidation is evident. Calcified granuloma of the right lateral lung base is seen. No lytic process is seen. IMPRESSION: No acute abnormality of the abdomen or pelvis. Sigmoid diverticulosis without diverticulitis. No urinary tract stone or hydronephrosis or hydroureter is seen. Electronically signed by: Rudolph Campos MD (09/17/2018 4:29 PM) [facility]
[2018-09-17 17:14] VITALS: BP 167/72
[2018-09-17] MEDS ORDERED: HYDR-3164 PO (17:18)
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
== END 2018-09-17 17:30 | disposition home or self-care (01) ==
LOC: ER 14:50
DX: M54.5 Low back pain (principal); R10.9 Unspecified abdominal pain; K57.30 Diverticulosis of large intestine without perforation or abscess without bleeding; J44.9 Chronic obstructive pulmonary disease, unspecified; K21.9 Gastro-esophageal reflux disease without esophagitis; E78.00 Pure hypercholesterolemia, unspecified; I10 Essential (primary) hypertension; Z90.49 Acquired absence of other specified parts of digestive tract; Z90.89 Acquired absence of other organs; Z98.51 Tubal ligation status; Z88.8 Allergy status to other drugs, medicaments and biological substances
CPT/HCPCS: 36415; 74176; 80053; 81001; 85025; 87086; 96374; 99284; J3010; J7040

== ENCOUNTER → 2020-02-14 | Outpatient (CLI) | payer OTHER ==
[2019-05-05 11:00] VITALS: BP 140/74
[~2020-02-14] MED LIST changes: +ACET325T9 PO; +DICL100G54 TP; +DOXY100T PO; +GUAI100L12 PO; +HYDR-3164 PO; +IPRA3AMP29 NEB; +LACT1CAP19 PO; -LEVO75TA PO; +LEVO75TA90 PO; +LIDO700A21 TD; +PRED50TA PO
--- NOTE | 2020-02-14 16:42 | RAD ---
MRI Lumbar Spine without contrast History: Degenerative disc disease Technique: Multiplanar, multi sequential noncontrast MR imaging was performed of the lumbar spine. Comparison: None Findings: There is motion degradation. Lumbar vertebral body stature is maintained. There is fairly advanced disc disc disease at L4-5 and L5-S1, moderate to severe degenerative disease L3-4 and to lesser degree at L2-3 and L1-2. There is also degenerative disc disease of visualized inferior thoracic levels greatest at T9-10 and T10-11. There is endplate edema greatest at L4-5 and to lesser degree at T10-11 and minimally of the anterior, inferior corner of T12 more likely reactive/degenerative in etiology. There is negligible posterior subluxation L4 relative L5. Conus terminates at the L2-3 level. There is a hemangioma of the left anterior L1 vertebral body. There is some other heterogeneity of the marrow signal. There is nonspecific edema posterior subcutaneous fat of the lower back at the L5-S1 level. Inferior thoracic levels were not included on the axial images. There is multilevel facet degenerative change of the inferior thoracic spine which contributes to severe narrowing of the left T11-12 neural foramen, lesser degree of narrowing on the right at T11-12 and T10-11. There are also minimal posterior protrusions of inferior thoracic levels without significant spinal stenosis. L1-L2: There is very minimal disc osteophyte complex. There is mild buckling of the ligamentum flavum and mild facet hypertrophic change. Neural foramina are adequate. L2-L3: There is minimal disc osteophyte complex and bulge. There is mild buckling of the ligamentum flavum and facet hypertrophic change. Neural foramina are adequate. There is very mild narrowing of the far right lateral recess anteriorly. L3-L4: There is mild facet hypertrophic change and mild to moderate buckling of the ligamentum flavum. There is minimal disc osteophyte complex. There is very mild narrowing of the far lateral recesses bilaterally. Neural foramina are adequate. L4-L5: There is minimal disc osteophyte complex. There is mild to moderate buckling of the ligamentum flavum and mild facet hypertrophic change. There is mild narrowing of the far lateral recesses bilaterally somewhat greater on the left. There is [id number], left greater than right neural foramina compromise by disc osteophyte complex and facets. L5-S1: There is mild facet degenerative change. There is left laminectomy defect. There is minimal disc osteophyte complex. Spinal canal is adequate. Impression: 1. There is mild narrowing of the far lateral recesses bilaterally at L4-5 and L3-4 as described. 2. There is multilevel degenerative disc disease greatest at L4-5 and L5-S1. 3. There is [id number] neural foramina compromise bilaterally at L4-5. There is also degree of neural foramina compromise of visualized inferior thoracic levels such as on the left at T11-12. Electronically signed by: Ben Steen MD (02/14/2020 4:39 PM) [id number]
== END | disposition home or self-care (01) ==
LOC: MRI 14:15
PROVIDERS: ATTEND Nurse Practitioner Family
DX: M51.36 Other intervertebral disc degeneration, lumbar region (principal); M47.817 Spondylosis without myelopathy or radiculopathy, lumbosacral region; M47.814 Spondylosis without myelopathy or radiculopathy, thoracic region; M25.78 Osteophyte, vertebrae; D18.09 Hemangioma of other sites
CPT/HCPCS: 72148

== ENCOUNTER → 2020-03-06 | Outpatient (CLI) | payer OTHER ==
[2019-05-05 11:00] VITALS: BP 140/74
[~2020-03-06] MED LIST changes: +OMEP40CA45 PO; +TRAZ-123 PO
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
== END | disposition home or self-care (01) ==
LOC: PNCL 09:01
PROVIDERS: ATTEND Anesthesiology
DX: M51.36 Other intervertebral disc degeneration, lumbar region (principal); M79.662 Pain in left lower leg; M25.78 Osteophyte, vertebrae; J44.9 Chronic obstructive pulmonary disease, unspecified; K21.9 Gastro-esophageal reflux disease without esophagitis; I10 Essential (primary) hypertension; M19.90 Unspecified osteoarthritis, unspecified site; Z98.890 Other specified postprocedural states; Z87.891 Personal history of nicotine dependence; Z88.8 Allergy status to other drugs, medicaments and biological substances; Z79.899 Other long term (current) drug therapy
CPT/HCPCS: G0463

== ENCOUNTER → 2020-05-21 | Outpatient (CLI) | payer OTHER ==
[2019-05-05 11:00] VITALS: BP 140/74
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
== END ==
LOC: KCIC 09:53
PROVIDERS: ATTEND Nurse Practitioner Family
DX: R07.9 Chest pain, unspecified (principal)
CPT/HCPCS: 71045

== ENCOUNTER 2020-06-02 12:48 | Emergency (ER) | payer OTHER ==
[~2020-06-02] VITALS: Ht 144.8 cm; Wt 72.0 kg
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
[2020-06-02] MEDS ORDERED: KETOROLAC 15 MG/ML VIAL. IVP ONE (13:15)
[2020-06-02] MEDS ORDERED: IV NORMAL SALINE 1000ML BAG 1,000 ML IV ONE (13:15)
[2020-06-02] MEDS ORDERED: ONDANSETRON PF 4 MG/2 ML VIAL. IVP ONE (13:15)
[2020-06-02 13:19] LABS: BILIRUBIN,URINE NEGATIVE (NEG); CLARITY,URINE CLEAR; COLOR,URINE YELLOW; NITRITE,URINE NEGATIVE (NEG); PROTEIN,URINE NEGATIVE (NEG-TRACE)
[2020-06-02 13:26] LABS: HYALINE CASTS, URINE FEW /HPF
[2020-06-02 13:28] LABS: BACTERIA,URINE 0 /HPF (0-FEW); RBC,URINE 0 /HPF (0-2)
[2020-06-02 13:44] LABS: BASO % 1 % (0-3); EOS % 1 % (0-3); HEMATOCRIT 31.6 % (36.0-47.0); HEMOGLOBIN 10.9 g/dL (12.0-15.5); LYMPH # 1.4 x10^3/uL (1.0-4.8); LYMPH % 28 % (24-48); MEAN CORPUSCULAR HEMOGLOBIN 31 pg (25-35); MEAN CORPUSCULAR HGB CONC 34 g/dL (31-37); MEAN CORPUSCULAR VOLUME 92 fL (79-100); MONO # 0.4 x10^3/uL (0.0-1.1); MONO % 8 % (0-9); NEUT # 3.2 x10^3/uL (1.8-7.7); NEUT % 62 % (31-73); PLATELET COUNT 164 x10^3/uL (140-400); RED BLOOD COUNT 3.46 x10^6/uL (3.50-5.40); WHITE BLOOD COUNT 5.1 x10^3/uL (4.0-11.0)
--- NOTE | 2020-06-02 13:50 | RAD ---
EXAM: CT Abdomen and Pelvis without IV contrast INDICATION: Reason: L FLANK PAIN X 3 DAYS, R/O STONE / Spl. Instructions: / History: TECHNIQUE: Multi-detector row CT images were acquired from the lung bases through the abdomen and pel vis without the use of IV contrast. Sagittal and coronal images were acquired from the transaxial debby a. All CT scans performed at this facility utilize dose optimization techniques as appropriate to the exam, including the following: Automated exposure control and adjustment of the mA and/or KV accordi ng to patient size (this includes techniques or standardized protocols for targeted exams where dose is indication/reason for exam). ORAL CONTRAST: None COMPARISON: Noncontrast abdomen pelvis CT of 09/17/2018. FINDINGS: The absence of IV contrast limits evaluation of soft tissue pathology. LOWER CHEST: Unremarkable LIVER: Unremarkable BILIARY SYSTEM: Gallbladder is unremarkable. Bile ducts are not dilated. PANCREAS: Unremarkable SPLEEN: Unremarkable ADRENALS: Unremarkable KIDNEYS & URETERS: No hydronephrosis, perirenal stranding or radiopaque stones in either kidney. No hydroureter evident either. In the pelvis, there are punctate calcifications bilaterally that are nuvia se to the ureters and are favored to represent pelvic phleboliths rather than ureteral calcifications . They have overall similar appearance to the comparison study. BLADDER: Unremarkable REPRODUCTIVE ORGANS: Unremarkable GASTROINTESTINAL: Colonic diverticulosis is redemonstrated without evidence of acute diverticulitis. Otherwise the stomach, small bowel, and colon are unremarkable. The appendix is not well seen but the re are no findings suggestive of acute appendicitis.. MESENTERY/PERITONEUM/RETROPERITONEUM: Unremarkable VASCULAR: Unremarkable LYMPH NODES: No adenopathy OSSEOUS & SOFT TISSUES: Unremarkable IMPRESSION: 1. No evidence of obstructive uropathy. 2. Punctate calcifications in the pelvis are close to the ureters and are favored to represent pelvi c phleboliths rather than ureteral calcifications. They have overall similar appearance to the compar mary study. Electronically signed by: Kyle Benitez MD (06/02/2020 1:47 PM) [id number]
[2020-06-02 14:02] LABS: CALCIUM 8.6 mg/dL (8.5-10.1); GFR 53.9; POTASSIUM 4.6 mmol/L (3.5-5.1)
[2020-06-02 14:06] LABS: ALBUMIN 3.3 g/dL (3.4-5.0); ALBUMIN/GLOBULIN RATIO 1.2 (1.0-1.7); TOTAL BILIRUBIN 0.3 mg/dL (0.2-1.0); TOTAL PROTEIN 6.1 g/dL (6.4-8.2)
[2020-06-02] MEDS ORDERED: HYDR-3164 PO (14:26)
[2020-06-02] MEDS ORDERED: ONDA4TAB12 PO (14:26)
[2020-06-02 14:27] VITALS: BP 99/57
== END 2020-06-02 14:50 | disposition home or self-care (01) ==
LOC: ER 12:48
DX: R10.32 Left lower quadrant pain (principal); J44.9 Chronic obstructive pulmonary disease, unspecified; K21.9 Gastro-esophageal reflux disease without esophagitis; E78.00 Pure hypercholesterolemia, unspecified; I10 Essential (primary) hypertension; Z87.891 Personal history of nicotine dependence; Z90.89 Acquired absence of other organs; Z90.49 Acquired absence of other specified parts of digestive tract; Z98.51 Tubal ligation status; Z88.8 Allergy status to other drugs, medicaments and biological substances
CPT/HCPCS: 36415; 74176; 80053; 81001; 83690; 85025; 87086; 96361; 96374; 96375; 99284; J1885; J2405; J7030